=== PATIENT | female | born 1950 | race Caucasian/White ===

== ENCOUNTER → 2016-12-01 | Outpatient (CLI) | payer MEDICARE ==
[~2016-12-01] MED LIST: ASPIRIN81 MG PO; COREG6.25 MG PO; FOLIC ACID1 MG PO; METHOTREXATE2.5 MG PO; PLAQUENIL200 MG PO; PLETAL100 MG PO; PRINIVIL2.5 MG PO; SPIRIVA18 MCG INH; SYNTHROID75 MCG PO; ZOCOR40 MG PO
== END | disposition short-term general hospital (02) ==
LOC: CLRHEU 13:06
DX: L40.59 Other psoriatic arthropathy (principal); M05.9 Rheumatoid arthritis with rheumatoid factor, unspecified

== ENCOUNTER → 2016-12-28 | Outpatient (CLI) | payer MEDICARE | END | disposition short-term general hospital (02) | LOC: CLVASC 13:47 | DX: Z48.812 Encounter for surgical aftercare following surgery on the circulatory system (principal); I77.1 Stricture of artery; Z98.890 Other specified postprocedural states ==

== ENCOUNTER → 2017-02-15 | Outpatient (CLI) | payer MEDICARE | END | disposition short-term general hospital (02) | LOC: CLRHEU 10:57 | DX: M05.9 Rheumatoid arthritis with rheumatoid factor, unspecified (principal); L40.50 Arthropathic psoriasis, unspecified; M81.0 Age-related osteoporosis without current pathological fracture; Z86.39 Personal history of other endocrine, nutritional and metabolic disease; Z79.899 Other long term (current) drug therapy; M21.839 Other specified acquired deformities of unspecified forearm ==